=== PATIENT | female | born 1985 | race Caucasian/White ===

== ENCOUNTER 2017-05-15 06:18 | Day surgery (SDC) | payer OTHER, SELFPAY ==
--- NOTE | 2017-05-14 21:49 | PCM.HP.BLA ---
History and Physical Date of Admission: 05/15/17 HISTORY OF PRESENT ILLNESS 32 year old woman presents with bilateral inguinal hidradenitis that has recently flared up. She complains of increasing pain and redness and induration and swelling. She denies any purulent drainage. She denies any fever. She was placed on Cleocin antibiotics. She has also been on Bactrim and Minocycline. There has been some relief. She has never had surgery for her hidradenitis in the past. She states the right side is more symptomatic at this time as compared to the left side. She presents at this time for further evaluation and treatment. PAST MEDICAL HISTORY Autoimmune diseases. Headaches. Allergies. PAST SURGICAL HISTORY None. MEDICATIONS Vitamin E. Biotin. Ethinyl Estradiol/Drospirenone. Clindamycin. Minocycline. Spironolactone. ALLERGIES Nickel. SOCIAL HISTORY Patient does not smoke. Patient drinks alcohol occasionally. FAMILY HISTORY Positive for skin cancer. Breast cancer - Mother. Hypertension - Mother. REVIEW OF SYSTEMS General - Denies fever, fatigue, and weight loss. ENT - Denies nasal congestion and sore throat. Eyes - Denies cataracts and glaucoma. Endocrine - Denies excessive thirst and urination. Skin - Has bilateral inguinal hidradenitis, worse on the right. Musculoskeletal - Denies joint pain, joint stiffness, weakness of muscles and joints, back pain, and arthritis. Neuro - Has headaches. Cardiovascular - Denies chest pain, fatigue, and shortness of breath with exertion. Psych - Denies anxiety and depression. Respiratory - Denies cough and shortness of breath. Gastrointestinal - Denies nausea, vomiting, diarrhea, and constipation. Hematologic - Denies abnormal bruising and bleeding. Genitourinary - Denies urinary frequency and hematuria. PHYSICAL EXAMINATION General - Alert and oriented. HEENT - PERRL. EOMI. Throat is clear. Neck - Supple and nontender. No cervical adenopathy. Lungs - Clear to auscultation. Heart - Regular rate and rhythm. Abdomen - Soft and nondistended. Extremities - FROM. No axillary adenopathy. No inguinal adenopathy. Radial pulses are palpable. Dorsalis pedis pulses are palpable. She has bilateral inguinal hidradenitis worse on the right. There is redness and induration and discoloration and some tenderness to palpation and swelling. No purulent drainage noted. On the right inguinal side, it measures 10 cm and on the left inguinal side, it measures 8 cm. There is some extension of the hidradenitis in the vulval area from the genitocrural area to the labia. Neuro - CN II - XII grossly intact. ASSESSMENT 1. Bilateral inguinal hidradenitis, worse on the right. 2. Right vulval hidradenitis. 3. Family history of skin cancer. PLAN Continue Cleocin antibiotics. Recommend excision of these areas of hidradenitis in her bilateral inguinal areas with some extension into the vulval area from the genitocrural area to the labia. The right side is more symptomatic at this time. After excision, will send the tissue to Pathology for analysis to rule out carcinoma. Tissue will also be sent to Microbiology for culture. A positive culture will necessitate antibiotic therapy. Post discharge will followup at the Wound Center. If there is a delay in the healing process, may consider delayed closure with skin grafting. Depending on the size and extent of the surgical excision, placement of a marcial catheter for a couple of weeks will help to divert the urine away from the healing wound. After the right side has healed, can consider excision painful hidradenitis on the left side in the next couple of weeks. Surgery will be done under general anesthesia with a surgical observation overnight stay. Anticipate increased metabolic demands from the size of the wound and the presence of chronic inflammation and infection. Will check a Prealbumin. Will encourage nutritional supplementation with protein to help the healing process. Patient was informed of the risks and complications of the procedure including alternatives to surgery. These were discussed with her personally. She voices understanding and wishes to proceed. Some of the risks and complications were included in a form from the [employer] [place] [employer].
[2017-05-15] VITALS (9 sets, daily range): BP systolic 113–130; BP diastolic 61–77; PULSE 69–118; RESP 14–20; TEMP 36.4–37.3; O2SAT 98–100; BMI 25.9
--- NOTE | 2017-05-15 | HID_PTH ---
PATIENT: JEAN PAUL PEARCE LOC: [facility] U#:[id number] AGE/SX: 32/F ROOM: RE05/15/[address]: Dr. Jethro Harris MD : 1985 BED: DIS: 05/16/2017 SPEC #: [id number] RECD: 05/15/17 11:19 STATUS: ALTA HAYES #: [id number] ROBIN: 05/15/17 00:[address]: Jethro Harris DEPT: SURGICAL PATHOLOGY RECD BY: Graham Bauer ENTERED: 05/15/17 11:20 SP TYPE: Abdulkadir SELF DR: No Primary Care Phys Tissues: Inguinal region, NOS Procedures: Surgery Specimen Level IV HEADER OPERATION: Excision, hidradenitis, inguinal PRE-OP DIAGNOSIS: Bilateral hidradenitis groin, right worse than left TISSUE SUBMITTED: Soft tissue right groin MICROSCOPIC DIAGNOSIS Skin and soft tissue of right groin, excision: Consistent with hidradenitis. AM:edward 05/16/17 MICROSCOPIC DESCRIPTION Slides are reviewed. GROSS DESCRIPTION Received in fixative is one container labeled with the patient's name and designated soft tissue right groin. The specimen consists of an irregular fragment of elizabeth skin measuring 10.5 x 3.8 cm. Attached to it is yellow fatty tissue excised to a depth of 1.2 cm. No cutaneous mass lesions are identified. Serial sections do not reveal mass lesions. Academic Computing Director sections are submitted in two cassettes. / AM:edward 05/15/17 TC:3 CPT: 33643
[2017-05-15 06:45] LABS: Internal QC Validated? YES +Cl - CLEAR BKGD; Pregnancy, Urine Negative Negative
[2017-05-15] MEDS: Cefazolin 2 GM in 0.9% Normal Saline 100 ML IV (08:07)
--- NOTE | 2017-05-15 08:46 | PCM.IMDPSTOP ---
Immediate Post-Op Note Date of Procedure: 05/15/17 Primary Surgeon/Physician: Jethro Harris special education classroom aide: None Pre-Operative Diagnosis: 1. Right inguinal hidradenitis. 2. Right vulval hidradenitis. 3. Family history of skin cancer. Post-Operative Diagnosis: Same. Surgery/Procedure Performed:: 1. Surgical preparation right inguinal area with excision hidradenitis. 2. Excision hidradenitis right vulval area with partial vulvectomy including deep subcutaneous tissue (genitocrural area up to labia). Description of Surgical Findings:: 32 year old woman presents with bilateral inguinal hidradenitis that has recently flared up. She complains of increasing pain and redness and induration and swelling. She denies any purulent drainage. She denies any fever. She was placed on Cleocin antibiotics. She has also been on Bactrim and Minocycline. There has been some relief. She has never had surgery for her hidradenitis in the past. She states the right side is more symptomatic at this time as compared to the left side. Today the patient underwent surgical preparation right inguinal area with excision hidradenitis and excision hidradenitis right vulval area with partial vulvectomy including deep subcutaneous tissue (genitocrural area up to labia). Size of defect right inguinal and vulval area - 14 x 8 x 1 cm. Estimated Blood Loss: 25 ml. Specimen's removed: Right inguinal and vulval hidradenitis to Pathology and Microbiology. Drains: None. Type of Anesthesia:: General - Admit VTE Documentation VTE Present on Admission: No VTE Mechan Device Prophylaxis: SCD's VTE Pharm Prophylaxis ordered?: No
[2017-05-15] MEDS: Lactated Ringers 1,000 ML 60 ML IV (10:22)
[2017-05-15] MEDS: Cefazolin 1 GM/50 ML BAG IV (15:59)
[2017-05-15] MEDS: Acetaminophen 325 MG Tablet 650 MG PO (16:06)
--- NOTE | 2017-05-15 16:14 | CASEMGMT ---
Intro role of CM to patient in room. She is awake alert, and lives in [place]. Plan is to return home to [place] on dc. Per [employer] [facility] website, [facility] is [facility] and able to take pt. Referral faxed. [facility] PH: [phone] FX: [phone] -Pt will need to f/u with wound care center in [place]. States she lives near [facility]. Call to wound care center, they can accept as new pt. Laine, staff member asked that pt call her on dc and they will schedule first appointment. Pt updated and would like her information faxed to facility. Referral faxed. [facility] [address] [place], [place] PH: [phone] FX: [phone]
--- NOTE | 2017-05-15 17:56 | PCM.OPRPT ---
Report of Operation Date of Procedure: 05/15/17 Pre-Operative Diagnosis: 1. Right inguinal hidradenitis. 2. Right vulval hidradenitis. 3. Family history of skin cancer. Post-Operative Diagnosis: Same. Surgery/Procedure Performed:: 1. Surgical preparation right inguinal area with excision hidradenitis (112 cm2). 2. Excision hidradenitis right vulval area with partial vulvectomy including deep subcutaneous tissue (genitocrural area up to labia). Description of Surgical Findings:: 32 year old woman presents with bilateral inguinal hidradenitis that has recently flared up. She complains of increasing pain and redness and induration and swelling. She denies any purulent drainage. She denies any fever. She was placed on Cleocin antibiotics. She has also been on Bactrim and Minocycline. There has been some relief. She has never had surgery for her hidradenitis in the past. She states the right side is more symptomatic at this time as compared to the left side. Patient was informed of the risks and complications of the procedure including alternatives to surgery. These were discussed with her personally. She voices understanding and wishes to proceed. Some of the risks and complications were included in a form from the [place] [employer]. Size of defect right inguinal and vulval area - 14 x 8 x 1 cm. hand painter: None Type of Anesthesia:: General Specimen's removed: Right inguinal and vulval hidradenitis to Pathology and Microbiology. Drains: None. Estimated Blood Loss (mL): 25 ml. Description of Procedure: Patient was taken to OR in supine position and was placed under general anesthesia. Her inguinal and vulval areas were prepped and draped in the usual fashion. SCD's were placed for DVT prophylaxis. Perioperative antibiotics were given intravenously. The area of hidradenitis was marked out in the right inguinal area with extension into the vulval area up to the labia. Incision was made with a scalpel down through the subcutaneous tissue until the underlying muscular fascia was seen. There was fat necrosis present and indurated scarring indicative of chronic infection. No acute pus was noted. The perineal area was not involved. The mons pubis was not involved. The right inguinal hidradenitis was excised. The right vulval hidradenitis was also excised from the genitocrural area up to the labia with a partial vulvectomy. Hemostasis was obtained with electrocautery. The wound was irrigated with saline. Both excisions were combined into one larger wound. The dimensions of the wound after excision was 14 x 8 x1 cm. Tissue was sent to Pathology for analysis to rule out carcinoma. Tissue was also sent to Microbiology for culture. A positive culture will necessitate antibiotic therapy. The wound was then packed with Mepitel nonadherent dressing followed by Kerlix gauze with Betadine followed by dry Kerlix gauze and ABD pads. Patient tolerated the procedure well and was sent to PACU in satisfactory condition. She will be sent upstairs for surgical observation overnight stay in the hospital. When the VAC is approved and when she is tolerating po analgesia, then she will be discharged home. She will followup at the W[facility] Center. She will be sent home on antibiotics and pain medication. Grafts/Implants Used: None. - Complications None. - Admit VTE Documentation VTE Present on Admission: No VTE Mechan Device Prophylaxis: SCD's VTE Pharm Prophylaxis ordered?: No Code Visit Surgery Charges CPT - 20613 ICD-10 - L73.2, S31.103A, Z80.8 69329 L73.2, S31.40xA, Z80.8
[2017-05-15] MEDS: ETHINYL ESTRADIOL/DROSPIRENONE 1 EACH TABLET PO (18:28)
[2017-05-16] MEDS: Cefazolin 1 GM/50 ML BAG IV ×3 (00:03→16:06)
[2017-05-16 02:10] VITALS: BP 114/53; PULSE 79; RESP 18; TEMP 37.2; O2SAT 100
[2017-05-16] MEDS: Lactated Ringers 1,000 ML 60 ML IV (03:00)
[2017-05-16 05:59] LABS: Hematocrit 35.8 % (37-47); Hemoglobin 11.3 g/dl (12.0-15.0); Mean Corp Hgb Conc 31.6 g/gl (32-36); Mean Corpuscular Hgb 28.8 pg (27.0-32.0); Mean Corpuscular Volume 91.1 fL (81-99); Mean Platelet Vol. 10.1 fl (6.2-12.0); Platelet Count 183 K/mm3 (150-450); RBC Distribution Width CV 12.6 % (11.6-14.6); RBC Distribution Width SD 42.1 fl (35.1-43.9); Red Blood Count 3.93 M/mm3 (4.2-5.4); White Blood Count 5.1 K/mm3 (4.4-11.0)
[2017-05-16 06:05] LABS: Scan Indicated on CBC? Y/N NO
[2017-05-16 06:31] LABS: Anion Gap 6 (5-15); BUN 7 mg/dL (7-18); BUN/Creat Ratio 10.8 RATIO (10-20); Chloride 109 mmol/L (98-107); Creatinine, Serum 0.65 mg/dL (0.55-1.02); EST Glomerular Filtration Rate 113 mL/min (>60); Est Glom Filt Rate - Afr Amer 137 mL/min (>60); Glucose 87 mg/dL (74-106); Potassium 3.8 mmol/L (3.5-5.1); Prealbumin 19.4 mg/dL (20.0-40.0); Sodium Level 142 mmol/L (136-145)
[2017-05-16 07:45] VITALS: BP 102/66; PULSE 55; RESP 16; TEMP 37; O2SAT 98
--- NOTE | 2017-05-16 12:32 | NURSING ---
wound photo: right groin
[2017-05-16 14:55] VITALS: BP 111/68; PULSE 87; RESP 16; TEMP 37; O2SAT 100
--- NOTE | 2017-05-16 18:30 | PCM.PN.SRG ---
Subjective: Postop #1 Patient is resting comfortably - Physical Exam General: Alert, Oriented x3 HEENT: PERRLA, EOMI Neck: Supple Lungs: Clear to auscultation Cardiovascular: Regular rate, Regular Rhythm Abdomen: Soft, Non-Distended Vital Signs Temp Pulse Resp BP Pulse Ox 98.6 F 87 16 111/68 100 05/16/17 14:55 05/16/17 14:55 05/16/17 14:55 05/16/17 14:55 05/16/17 14:55 Oxygen Delivery Method Room Air Weight: 170 lb 13.732 oz Body Mass Index (BMI) 25.9 Intake and Output for Last 24 Hours 05/14/17 05/15/17 05/16/17 23:59 23:59 23:59 Intake Total 2106 / 2106 3360 / 3360 Output Total 450 / 450 300 / 300 Balance 1656 / 1656 3060 / 3060 Microbiology Past 72 Hours 05/15/17 09:00 Gram Stain - Final Tissue - Groin Wound Culture - Preliminary Laboratory Tests Past 24 Hrs 05/16/17 05/16/17 05:40 05:40 WBC 5.1 RBC 3.93 L Hgb 11.3 L Hct 35.8 L MCV 91.1 MCH 28.8 MCHC 31.6 L RDW 12.6 RDW Differential 42.1 Plt Count 183 MPV 10.1 Sodium 142 Potassium 3.8 Chloride 109 H Carbon Dioxide 27.0 Anion Gap 6 BUN 7 Creatinine 0.65 Estim Creat Clear Calc 126.50 Est GFR (MDRD) Af Amer 137 Est GFR (MDRD) Non-Af 113 BUN/Creatinine Ratio 10.8 Glucose 87 Calcium 8.0 L Prealbumin 19.4 L Medical Necessity - Tobacco Use Smoking Status: Never smoker Assessment/Plan 1. Right inguinal hidradenitis. 2. Right vulval hidradenitis. 3. Family history of skin cancer. 4. s/p surgical preparation right inguinal area with excision hidradenitis (112 cm2) and excision hidradenitis right vulval area with partial vulvectomy including deep subcutaneous tissue (genitocrural area up to labia). VAC applied today without difficulty. To be changed three times per week at 150 mmHg continuous suction. Operative culture negative thus far. Will send home on Minocycline. When the culture becomes available, antibiotic modification may be necessary. Prealbumin was 19.4. Encourage nutritional supplementation with protein to help the healing process. Tolerating po analgesia. Discharge home today. Followup one month. In the meantime, she will followup with a Wound Center in [place]. Wrote script for Minocycline. Wrote scripts for Percocet for pain (60 tabs) and for Valium for spasm (30 tabs). Wrote scripts for Phenergan for nausea (30 tabs) and a refill and for Colace for constipation (60 tabs). If there is a plateau in the healing process, can proceed with delayed closure with skin grafting.
--- NOTE | 2017-05-16 18:54 | PCM.DC ---
You will use the following diet at home:: No restrictions, Other - encourage nutritional supplementation with protein to help the healing process. Discharge Activity: May not drive while taking narcotic pain medications., May Shower - on the days the vac is changed. May shower in (days): 2 - may shower on the days the vac is changed. May resume sexual activity in: No Restrictions Weight Bearing Status: Weight bearing as tolerated Call your doctor if your incision/area has: Continuous Slow Oozing, Sudden Increased Bleeding, Increased Pain/ Swelling, Increased Redness, Foul Smelling Discharge, Swelling at the incision site Call your doctor if you observe: Fever of 101 or Higher, Coldness, Increased Pain, Shortness of breath, Chest pain, Calf discomfort, Uncontrolled pain Suture Line Care: - - vac changes three times per week at 150 mmHg continuous suction. Change Dressing in (Days):: 2 - vac changes three times per week. Cleanse incision/area with: Soap & Water - may cleanse the wound with soap and water on the days the vac is changed., - - may shower on the days the vac is changed. Allergies/Adverse Reactions: Allergies nickel Allergy (Verified 05/08/17 10:14) Rash Medications to take at Discharge Biotin 5 mg PO DAILY 05/08/17 Ethinyl Estradiol/Drospirenone [Ocella 3 mg-0.03 mg Tablet] 1 each PO DAILY 05/08/17 Vitamin E 400 unit PO DAILY 05/08/17 Acetaminophen [Tylenol Tablet] 650 mg PO Q4H PRN PRN tablet 05/16/17 Diazepam [Valium] 5 mg PO 4X/DAY PRN PRN #30 tab 05/16/17 Docusate Sodium [Colace] 100 mg PO BID #60 cap 05/16/17 Minocycline [Minocin] 100 mg PO BID #28 cap 05/16/17 Oxycodone HCl/Acetaminophen [Percocet 5/325] 1 - 2 tab PO 4X/DAY PRN PRN 7 Days #60 tab 05/16/17 proMETHazine tablet [Phenergan tablet] 25 mg PO 4X/DAY PRN PRN #30 tab 05/16/17 The following prescriptions were given: Diazepam [Valium] 5 mg PO 4X/DAY PRN PRN #30 tab PRN Reason: Spasms Oxycodone HCl/Acetaminophen [Percocet 5/325] 1 - 2 tab PO 4X/DAY PRN PRN 7 Days #60 tab PRN Reason: Pain proMETHazine tablet [Phenergan tablet] 25 mg PO 4X/DAY PRN PRN #30 tab PRN Reason: NAUSEA/VOMITING Docusate Sodium [Colace] 100 mg PO BID #60 cap Minocycline [Minocin] 100 mg PO BID #28 cap Primary Care Physician: Care Physician,No Primary [Primary Care Provider] - Please Follow Up With: Jethro Harris MD When: one month. call [phone] for appt. Please Follow Up With: [facility] When: [phone] Please Follow Up With: [facility] When: Call them when you are home to set up an appointment Proposed Discharge Date: 05/16/17
--- NOTE | 2017-05-16 18:57 | DCINST_ITS ---
You will use the following diet at home:: No restrictions, Other - encourage nutritional supplementation with protein to help the healing process. Discharge Activity: May not drive while taking narcotic pain medications., May Shower - on the days the vac is changed. May shower in (days): 2 - may shower on the days the vac is changed. May resume sexual activity in: No Restrictions Weight Bearing Status: Weight bearing as tolerated Call your doctor if your incision/area has: Continuous Slow Oozing, Sudden Increased Bleeding, Increased Pain/ Swelling, Increased Redness, Foul Smelling Discharge, Swelling at the incision site Call your doctor if you observe: Fever of 101 or Higher, Coldness, Increased Pain, Shortness of breath, Chest pain, Calf discomfort, Uncontrolled pain Suture Line Care: - - vac changes three times per week at 150 mmHg continuous suction. Change Dressing in (Days):: 2 - vac changes three times per week. Cleanse incision/area with: Soap & Water - may cleanse the wound with soap and water on the days the vac is changed., - - may shower on the days the vac is changed. Allergies/Adverse Reactions: Allergies nickel Allergy (Verified 05/08/17 10:14) Rash Medications to take at Discharge Biotin 5 mg PO DAILY 05/08/17 Ethinyl Estradiol/Drospirenone [Ocella 3 mg-0.03 mg Tablet] 1 each PO DAILY Vitamin E 400 unit PO DAILY 05/08/17 Acetaminophen [Tylenol Tablet] 650 mg PO Q4H PRN PRN tablet 05/16/17 Diazepam [Valium] 5 mg PO 4X/DAY PRN PRN #30 tab 05/16/17 Docusate Sodium [Colace] 100 mg PO BID #60 cap 05/16/17 Minocycline [Minocin] 100 mg PO BID #28 cap 05/16/17 Oxycodone HCl/Acetaminophen [Percocet 5/325] 1 - 2 tab PO 4X/DAY PRN PRN 7 Days #60 tab 05/16/17 proMETHazine tablet [Phenergan tablet] 25 mg PO 4X/DAY PRN PRN #30 tab 05/16/17 The following prescriptions were given: Diazepam [Valium] 5 mg PO 4X/DAY PRN PRN #30 tab PRN Reason: Spasms Oxycodone HCl/Acetaminophen [Percocet 5/325] 1 - 2 tab PO 4X/DAY PRN PRN 7 Days #60 tab PRN Reason: Pain proMETHazine tablet [Phenergan tablet] 25 mg PO 4X/DAY PRN PRN #30 tab PRN Reason: NAUSEA/VOMITING Docusate Sodium [Colace] 100 mg PO BID #60 cap Minocycline [Minocin] 100 mg PO BID #28 cap Primary Care Physician: Care Physician,No Primary [Primary Care Provider] - Please Follow Up With: Jethro Harris MD When: one month. call [phone] for appt. Please Follow Up With: [facility] When: [phone] Please Follow Up With: [facility] When: Call them when you are home to set up an appointment Proposed Discharge Date: 05/16/17
--- NOTE | 2017-05-16 21:57 | OP.PCM_ITS ---
Report of Operation Date of Procedure: 05/15/17 Pre-Operative Diagnosis: 1. Right inguinal hidradenitis. 2. Right vulval hidradenitis. 3. Family history of skin cancer. Post-Operative Diagnosis: Same. Surgery/Procedure Performed:: 1. Surgical preparation right inguinal area with excision hidradenitis (112 cm2). 2. Excision hidradenitis right vulval area with partial vulvectomy including deep subcutaneous tissue (genitocrural area up to labia). Description of Surgical Findings:: 32 year old woman presents with bilateral inguinal hidradenitis that has recently flared up. She complains of increasing pain and redness and induration and swelling. She denies any purulent drainage. She denies any fever. She was placed on Cleocin antibiotics. She has also been on Bactrim and Minocycline. There has been some relief. She has never had surgery for her hidradenitis in the past. She states the right side is more symptomatic at this time as compared to the left side. Patient was informed of the risks and complications of the procedure including alternatives to surgery. These were discussed with her personally. She voices understanding and wishes to proceed. Some of the risks and complications were included in a form from the [place] [employer]. Size of defect right inguinal and vulval area - 14 x 8 x 1 cm. front desk specialist: None Type of Anesthesia:: General Specimen's removed: Right inguinal and vulval hidradenitis to Pathology and Microbiology. Drains: None. Estimated Blood Loss (mL): 25 ml. Description of Procedure: Patient was taken to OR in supine position and was placed under general anesthesia. Her inguinal and vulval areas were prepped and draped in the usual fashion. SCD's were placed for DVT prophylaxis. Perioperative antibiotics were given intravenously. The area of hidradenitis was marked out in the right inguinal area with extension into the vulval area up to the labia. Incision was made with a scalpel down through the subcutaneous tissue until the underlying muscular fascia was seen. There was fat necrosis present and indurated scarring indicative of chronic infection. No acute pus was noted. The perineal area was not involved. The mons pubis was not involved. The right inguinal hidradenitis was excised. The right vulval hidradenitis was also excised from the genitocrural area up to the labia with a partial vulvectomy. Hemostasis was obtained with electrocautery. The wound was irrigated with saline. Both excisions were combined into one larger wound. The dimensions of the wound after excision was 14 x 8 x1 cm. Tissue was sent to Pathology for analysis to rule out carcinoma. Tissue was also sent to Microbiology for culture. A positive culture will necessitate antibiotic therapy. The wound was then packed with Mepitel nonadherent dressing followed by Kerlix gauze with Betadine followed by dry Kerlix gauze and ABD pads. Patient tolerated the procedure well and was sent to PACU in satisfactory condition. She will be sent upstairs for surgical observation overnight stay in the hospital. When the VAC is approved and when she is tolerating po analgesia, then she will be discharged home. She will followup at the [facility]. She will be sent home on antibiotics and pain medication. Grafts/Implants Used: None. - Complications None. - Admit VTE Documentation VTE Present on Admission: No VTE Mechan Device Prophylaxis: SCD's VTE Pharm Prophylaxis ordered?: No Code Visit Surgery Charges CPT - 90443 ICD-10 - L73.2, S31.103A, Z80.8 79481 L73.2, S31.40xA, Z80.8
--- NOTE | 2017-05-17 09:33 | CASEMGMT ---
Call to [facility]. notified of pt dc and dc instructions being faxed. Estrella VALDEZN RN ACM
== END 2017-05-16 19:30 | disposition home or self-care (01) ==
LOC: SDC 06:21 → AC 06:22 → MS2 08:30
PROVIDERS: Anesthesiology; Visit Provider Surgery
PROC: (CPT 11462; principal; 2017-05-15 07:45)
DX: L73.2 Hidradenitis suppurativa (principal); K21.9 Gastro-esophageal reflux disease without esophagitis; F41.9 Anxiety disorder, unspecified; Z79.899 Other long term (current) drug therapy; Z80.8 Family history of malignant neoplasm of other organs or systems
CPT/HCPCS: 11462; 56620; 36415; 80048; 81025; 84134; 85027; 87070; 87075; 87076; 87077; 87102; 87186; 87205; 87206; 88304; 88305; J7120; J2405